=== PATIENT | female | born 1955 | race Caucasian/White ===

== ENCOUNTER 2022-10-25 16:54 | Inpatient (IN) | payer MEDICARE, SELFPAY ==
[2022-10-25] VITALS (7 sets, daily range): BP systolic 120–130; BP diastolic 74–89; PULSE 92–110; RESP 18–20; TEMP 36.6–36.7; O2SAT 92–96; BMI 23.6; BMI 25.9
--- NOTE | 2022-10-25 17:11 | ED_ITS ---
HPI - SOB/Dyspnea General Chief Complaint: Shortness of Breath/Dyspnea Stated Complaint: SHORTNESS OF BREATH AND SWELLING IN LEGS Time Seen by Provider: 10/25/22 17:11 Source: patient Mode of arrival: walk-in Limitations: no limitations History of Present Illness HPI Narrative: this patient's here complaining of swelling of her legs and retaining water. She said previously she was at urgent care and took a steroid and an antibiotic for sinus infection. That was several weeks ago. She's not been running a fever. She does not have a family doctor and has not seen a primary care doctor for nearly 10 years. She is down to one half pack tobacco products a day but she used to smoke a lot more than that for many many many years. She denies any documented history of chronic obstructive pulmonary disease or emphysema or asthma but again she does not see physicians. She uses a generous amount of salt with her food. She is not on any medications at all at this time. She also says when the [employer] came through, there is a lot of fast food, presumably with high sodium content. She's not having any chest pain. She's not had coronary disease myocardial infarction congestive heart failure or arrhythmia previously. Again very limited history because she just doesn't go see physicians. Related Data Home Medications Medication Instructions Recorded Confirmed No Known Home Medications 10/25/22 10/25/22 Allergies Allergy/AdvReac Type Severity Reaction Status Date / Time No Known Drug Allergies Allergy Verified 10/25/22 17:03 Exam Narrative Exam Narrative: GENERAL: Well hydrated, appears well, No obvious distress, Awake, Alert, Oriented x 3, Cognition intact HEENT: Normocephalic, No evidence of trauma, injury or infection, airway intact. Conjuntiva normal, no pallor or scleral icterus NECK: Supple, no meningeal irritation, full ROM, non-tender, No JVD CHEST: Symmetrical, no injury, non-tender, RESP: lungs show scattered rhonchi throughout. Her wheezing. CARDIO: Normal rate and rhythm, No murmur, Rub, or ectopy during auscultation. ABD: Non-tender, normal BS, no guarding, rebound or rigidity. No pulsatile, masses. No organomegaly NEURO: Neuro at baseline, No motor deficits, CN 2-12 Normal, Mentation inctact. EXTREMITIES: 3+ edema to the knees and distally. There is no active cellulitis. Perfusion is good with no evidence of tissue ischemia. SKIN: No petechiae, purpura, or abnormal bruising, warm, dry, no rash, skin is somewhat weathered consistent with her heavy tobacco use over the years. Constitutional Vital Signs, click to edit/add: Last Vital Signs Temp 97.9 F 10/25/22 17:00 Pulse 110 H 10/25/22 17:00 Resp 20 10/25/22 17:00 BP 120/84 H 10/25/22 18:04 Pulse Ox 96 10/25/22 17:00 O2 Del Method Room Air 10/25/22 17:00 Course Vital Signs Vital signs: Vital Signs Temperature 97.9 F 10/25/22 17:00 Pulse Rate 110 H 10/25/22 17:00 Respiratory Rate 20 10/25/22 17:00 Blood Pressure 130/89 H 10/25/22 17:00 Pulse Oximetry 96 10/25/22 17:00 Oxygen Delivery Method Room Air 10/25/22 17:00 Temperature 97.9 F 10/25/22 17:00 Pulse Rate 110 H 10/25/22 17:00 Respiratory Rate 20 10/25/22 17:00 Blood Pressure 120/84 H 10/25/22 18:04 Pulse Oximetry 96 10/25/22 17:00 Oxygen Delivery Method Room Air 10/25/22 17:00 MDM - SOB/Dyspnea MDM Narrative Medical decision making narrative: this patient has gone without health care for at least ten years. Heavy history of smoking now with subacute dyspnea with exertion and marked bilateral pitting edema. Chest x-ray shows small pleural effusions and vascular pulmonary congestion with marked elevation of BNP. Troponin is negative. No comparison EKGs the patient does have left bundle branch block. She has no pain or discomfort at all. She will receive IV diuretics and will need to be admitted. We'll discuss with the hospitalist. Lab Data Labs: Lab Results 10/25/22 Range/Units 17:17 WBC 8.4 (4.0-11.0) 10^3/uL RBC 5.06 (4.20-5.40) 10^6/uL Hgb 14.5 (12.0-16.0) g/dL Hct 42.9 (36.0-48.0) % MCV 84.8 (81.0-99.0) fL MCH 28.7 (26.7-34.0) pg MCHC 33.8 (29.9-35.2) g/dL RDW 15.0 (11.0-15.0) % Plt Count 252 (150-450) 10^3/uL MPV 10.3 (9.5-13.5) fL Neut % (Auto) 82.8 H (43.0-75.0) % Lymph % (Auto) 10.5 L (20.5-60.0) % Stafford % (Auto) 5.5 (1.7-12.0) % Eos % (Auto) 0.8 L (0.9-7.0) % Baso % (Auto) 0.2 (0.2-2.0) % Neut # (Auto) 7.0 H (1.4-6.5) 10^3/uL Lymph # (Auto) 0.9 L (1.2-3.8) 10^3/uL Stafford # (Auto) 0.5 (0.3-0.8) 10^3/uL Eos # (Auto) 0.1 (0.0-0.7) 10^3/uL Baso # (Auto) 0.0 (0.0-0.1) 10^3/uL Abs Immat Gran (auto) 0.02 (0.00-0.03) 10^3/uL Imm/Tot Granulo (auto) 0.2 (0.0-0.5) % Sodium 144 (136-145) mmol/L Potassium 3.9 (3.5-5.1) mmol/L Chloride 107 (98-107) mmol/L Carbon Dioxide 28.1 (21.0-32.0) mmol/L Anion Gap 12.8 BUN 15.0 (7.0-18.0) mg/dL Creatinine 0.88 (0.55-1.02) mg/dL Est GFR ( Amer) >60 (>=60) Est GFR (Non-Af Amer) >60 (>=60) BUN/Creatinine Ratio 17.0 Glucose 114 H (74-106) mg/dL Calcium 9.0 (8.5-10.1) mg/dL Total Bilirubin 0.5 (0.2-1.0) mg/dL AST 26 (15-37) U/L ALT 63 H (14-59) U/L Alkaline Phosphatase 160 H (46-116) U/L Troponin I High Sens 32.3 (4.0-51.3) pg/mL NT-Pro-B Natriuret Pep 52088.0 H* (<=900.0) pg/mL Total Protein 6.0 L (6.4-8.2) g/dL Albumin 3.4 (3.4-5.0) g/dL Globulin 2.6 g/dL Albumin/Globulin Ratio 1.3 Discharge Plan Discharge Chief Complaint: Shortness of Breath/Dyspnea Clinical Impression: Congestive heart failure Patient Disposition: Admitted As Inpatient Time of Disposition Decision: 18:01 Condition: Fair Interventions: ED Discharge Assessment Last Done: 10/25/22 18:59
--- NOTE | 2022-10-25 17:14 | XR_ITS ---
[address] [address] Patient Name: ERIC HARDWICK MRN: [id number] date: 1955 Sex: F Assigned Patient Location: ER Current Patient Location: ER Accession/Order Number: [id number] Exam Date: 10/25/2022 17:24 Report Date: 10/25/2022 17:43 At the request of: PEPE GARNER Procedure: XR chest 1V EXAM: XR chest 1V HISTORY: Shortness of breath and leg edema COMPARISON: None. TECHNIQUE: Portable chest FINDINGS: IMPRESSION: Moderate bilateral pleural effusions. The heart appears enlarged. Thickening of the pulmonary interstitium. No pneumothorax. No acute osseous abnormality. Electronically authenticated by: NORA JOYCE Date: 10/25/2022 17:43
--- NOTE | 2022-10-25 17:14 | ECG_ITS ---
[facility] Test Date: 2022-10-25 Pat Name: ERIC HARDWICK Department: Room: - Gender: Female Kier Hand: : 1955 Requested By: Order Number: [id number] Reading MD: THIEN KAN Measurements Intervals [place] Rate: 97 P: 47 VA: 132 QRS: -39 QRSD: 134 T: 129 QT: 422 QTc: 476 Interpretive Statements 1100 Sinus rhythm 2550 Left bundle branch block 6220 Possible left atrial enlargement 7200 Abnormal left axis deviation 9150 abnormal ECG No previous ECG available for comparison Electronically Signed On 10-26-2022 5:47:46 EDT by THIEN KAN
[2022-10-25 17:23] LABS: Basophils Percent Auto 0.2 % (0.2-2.0); Eosinophils Absolute Auto 0.1 10^3/uL (0.0-0.7); Eosinophils Percent Auto 0.8 % (0.9-7.0); Hematocrit 42.9 % (36.0-48.0); Hemoglobin 14.5 g/dL (12.0-16.0); Immature Granulocytes Abs Auto 0.02 10^3/uL (0.00-0.03); Immature Granulocytes Pct Auto 0.2 % (0.0-0.5); Lymphocytes Absolute Auto 0.9 10^3/uL (1.2-3.8); Lymphocytes Percent Auto 10.5 % (20.5-60.0); Mean Corpuscular HGB Conc 33.8 g/dL (29.9-35.2); Mean Corpuscular Hemoglobin 28.7 pg (26.7-34.0); Mean Corpuscular Volume 84.8 fL (81.0-99.0); Mean Platelet Volume 10.3 fL (9.5-13.5); Monocytes Absolute Auto 0.5 10^3/uL (0.3-0.8); Monocytes Percent Auto 5.5 % (1.7-12.0); Neutrophils Percent Auto 82.8 % (43.0-75.0); Platelet Count 252 10^3/uL (150-450); Red Blood Count 5.06 10^6/uL (4.20-5.40); White Blood Count 8.4 10^3/uL (4.0-11.0)
[2022-10-25 17:44] LABS: Alanine Aminotransferase 63 U/L (14-59); Albumin Globulin Ratio 1.3; Albumin Level 3.4 g/dL (3.4-5.0); Alkaline Phosphatase 160 U/L (46-116); Anion Gap 12.8; Aspartate Amino Transferase 26 U/L (15-37); Bilirubin Total 0.5 mg/dL (0.2-1.0); Carbon Dioxide 28.1 mmol/L (21.0-32.0); Chloride 107 mmol/L (98-107); Estimated GFR (African America >60 (>=60); Estimated GFR (Non-African Ame >60 (>=60); Globulin 2.6 g/dL; Glucose 114 mg/dL (74-106); Potassium 3.9 mmol/L (3.5-5.1); Sodium 144 mmol/L (136-145); Troponin I High Sensitivity 32.3 pg/mL (4.0-51.3)
[2022-10-25] MEDS: BUMETANIDE 1 MG/4 ML VIAL IVP (18:04)
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
[2022-10-26] VITALS (17 sets, daily range): BP systolic 95–108; BP diastolic 64–70; PULSE 78–105; RESP 16–18; TEMP 36.6–36.8; O2SAT 90–95; BMI 24.1
[2022-10-26 05:19] LABS: Basophils Percent Auto 0.3 % (0.2-2.0); Eosinophils Absolute Auto 0.1 10^3/uL (0.0-0.7); Eosinophils Percent Auto 1.8 % (0.9-7.0); Hematocrit 39.5 % (36.0-48.0); Hemoglobin 13.4 g/dL (12.0-16.0); Immature Granulocytes Abs Auto 0.02 10^3/uL (0.00-0.03); Immature Granulocytes Pct Auto 0.3 % (0.0-0.5); Lymphocytes Percent Auto 16.6 % (20.5-60.0); Mean Corpuscular HGB Conc 33.9 g/dL (29.9-35.2); Mean Corpuscular Volume 85.5 fL (81.0-99.0); Mean Platelet Volume 10.7 fL (9.5-13.5); Monocytes Absolute Auto 0.5 10^3/uL (0.3-0.8); Monocytes Percent Auto 7.5 % (1.7-12.0); Neutrophils Absolute Auto 4.4 10^3/uL (1.4-6.5); Neutrophils Percent Auto 73.5 % (43.0-75.0); Platelet Count 213 10^3/uL (150-450); Red Blood Count 4.62 10^6/uL (4.20-5.40); Red Cell Distribution Width 15.3 % (11.0-15.0)
[2022-10-26 05:46] LABS: Chol HDL Ratio 3.3; Cholesterol 166 mg/dL (<=200); HDL Cholesterol 51 mg/dL (40-60); LDL Cholesterol Calculated 90.2 mg/dL; Triglycerides 124 mg/dL (<=150); VLDL CHOLESTEROL 24.8 mg/dL
[2022-10-26 05:48] LABS: Anion Gap 14.2; BUN Creatinine Ratio 17.6; Calcium 8.5 mg/dL (8.5-10.1); Carbon Dioxide 26.4 mmol/L (21.0-32.0); Chloride 109 mmol/L (98-107); Estimated GFR (African America >60 (>=60); Estimated GFR (Non-African Ame >60 (>=60); Glucose 105 mg/dL (74-106); Magnesium 2.2 mg/dL (1.8-2.4); Potassium 3.6 mmol/L (3.5-5.1); Sodium 146 mmol/L (136-145)
--- NOTE | 2022-10-26 07:00 | CA_ITS ---
Patient Name Site Name ERIC HARDWICK [facility] Account No Medical Record Number Age Sex Date Time [id number] [facility]:[id number] F 10/26/2022 11:33 At the Request Of MALISSA AUSTIN ECHOCARDIOGRAM REPORT PROCEDURE: CA ECHO DOPPLER COMPLETE INDICATIONS: CHF, elevated BNP, edema, COPD, smoker COMPARISON: None. DESCRIPTION: COMPLETE ECHOCARDIOGRAM Real-time transthoracic echocardiography with 2D, M-mode, spectral and color flow Doppler performed. QUALITY: Technical quality was good. LEFT VENTRICLE: Moderate dilatation. Thickened septal wall. Severely reduced systolic function. LV EF: Visual estimation of left ventricular ejection fraction is 15-20%. DIASTOLIC: Grade II diastolic dysfunction. ATRIAL SEPTUM: Visually appears intact. LEFT ATRIUM: Moderate dilatation. RIGHT ATRIUM: Moderate dilatation. RIGHT VENTRICLE: Mild dilatation. Mildly decreased right ventricular systolic function. TRICUSPID VALVE: Normal mobility and thickness. No stenosis with trivial regurgitation. Doppler studies reveal mildly (35-45) elevated right sided pressures. RVSP 39 mmHg MITRAL VALVE: Normal mobility and thickness. No evidence of mitral valve stenosis. There is no mitral annular calcification. Moderate mitral regurgitation. AORTIC VALVE: Normal trileaflet appearance. No visible sclerosis. Normal leaflet mobility. No evidence of aortic valve stenosis. No aortic regurgitation. AORTIC ROOT: Normal diameter and appearance. PULMONIC VALVE: Normal thickness and mobility. No stenosis. No regurgitation. PERICARDIUM: No evidence of pericardial effusion. IVC: IVC is mildly dilated (2.4 cm) with no collapse. PLEURA: CONCLUSION: 1. Moderate dilatation of the left ventricle with severely reduced systolic function. LVEF is 15 to 20%. 2. Mildly dilated right ventricle with mildly reduced systolic function. 3. Moderate biatrial dilatation. 4. Grade 3 diastolic dysfunction. 5. Moderate mitral regurgitation. 6. Mildly elevated right-sided pressures. Adult Echocardiography Procedure Report Left Ventricle LVEDD (3.7 - 5.6 cm): 6.21 cm LVESD (2.2 - 4.0 cm): 5.22 cm LVIVS thickness (0.6 - 1.2 cm): 1.23 cm LVPW thickness (0.5 - 1.0 cm): 8.80 mm LVOT Max Gradient: 2 mm[Hg] Peak Velocity (LVOT): 64.20 cm/s LVOT Diameter 2.20 cm Left Ventricular Ejection Fraction: 15-20 % Left Atrium LA Volume Index (2D A2C): 10405 mm3 Left Atrium Systolic Dimension: 4.20 cm Mitral Valve MV E to A Ratio: 1.80 Mitral Valve A-Wave Peak Velocity: 68.60 cm/s Mitral Valve E-Wave Peak Velocity: 121.00 cm/s Right Ventricle Aorta AO Root Diam: 3.20 cm Aortic Valve AoV Area (Peak Vicente): 3.05 cm2 Peak Velocity(Antegrade Flow): 80.10 cm/s Peak Gradient(Antegrade Flow): 3 mm[Hg] Tricuspid Valve Peak Velocity (Regurgitant Flow): 247.00 cm/s Peak Velocity: 43.90 cm/s Pulmonic Valve Peak Velocity: 69.80 cm/s, 65.90 cm/s Peak Gradient: 2 mm[Hg] Right Atrium Dictated by: Siddhartha Ramsey M.D. on 10/26/2022 at 19:43 Approved by: Siddhartha Ramsey M.D. on 10/26/2022 at 19:47
[2022-10-26 07:30] LABS: Lactate/Lactic Acid 0.8 mmol/L (0.4-2.0)
[2022-10-26 07:37] LABS: Free T3 2.34 pg/mL (2.18-3.98); Magnesium 2.2 mg/dL (1.8-2.4); Thyroid Stimulating Hormone 3.595 uIU/mL (0.358-3.740); Troponin I High Sensitivity 26.5 pg/mL (4.0-51.3)
--- NOTE | 2022-10-26 09:07 | CM.NOTE ---
Rounds made with Dr. Ballard, pt continues to c/o dyspnea on exertion and lower extremity swelling. Dr. Ballard discussed plan of care and IV Bumex drip for today. No discharge today.
--- NOTE | 2022-10-26 09:48 | P.HP_ITS ---
H&P: HPI History of Present Illness Chief complaint: SOB AND SWELLING IN LEGS CONGESTIVE HEART FAILRE Narrative: Patient presented to the emergency room with increasing shortness of breath. Found to have acute combined congestive heart failure. This is a new diagnosis for her she has no history of heart failure in the past. Denies any cardiac issues in the past. Patient is admitted for work-up and treatment of same Review of Systems ROS Constitutional Denies: fever or chills Eyes Denies: change in vision Ears, nose, mouth, and throat Denies: throat pain Cardiovascular Reports: chest pain, edema, swelling of feet/ankles, shortness of breath with exertion and shortness of breath when lying down Respiratory Reports: shortness of breath Gastrointestinal Denies: abdominal pain or nausea Genitourinary Denies: painful urination Musculoskeletal Denies: back pain [facility] Medical History (Updated 10/25/22 @ 19:37 by Karyna Pritchard) Surgical History Family History Father Family history of cancer Mother Family history of cancer Family history of hypertension Family history of myocardial infarction Brother Family history of cancer Sister Family history of cancer Grandmother Family history of stroke Social History Within the past year, how often did you have a drink containing alcohol: never Within the past year, how many standard drinks containing alcohol did you have on a typical day: 1 or 2 Within the past year, how often did you have six or more drinks on one occasion: less than monthly Total score: 1 Score interpretation: A score less than 3 is consistent with normal alcohol consumption. Smoking status: Current every day smoker What tobacco products do you use: cigarettes Pack-years instructions: Please document either packs per day or cigarettes per day in order for pack years to calculate correctly. If using both packs per day and cigarettes per day, please make sure that they denote the same thing. If they differ, pack- years will calculate based on packs per day. Packs Per Day Cigarettes Per Day 1/4 of a pack 5 1/2 a pack 10 3/4 of a pack 15 1 pack 20 1.5 pack 30 2 packs 40 2.5 packs 50 3 packs 60 Packs per day: 1 Cigarettes per day: 10 Years smoked: 50 Smoking pack-years: 50.00 Non-prescribed substance use: denies use Previous occupational history: retired Known occupational exposures/hazards: No Highest level of school completed/degree received: some college, no degree Do you want help with school or training: No Are you now , , , , never or living with a partner: In a typical week, how many times do you talk on the telephone with family, friends, or neighbors: 3 or more times per week How often do you get together with friends or relatives: once per week How often do you attend jehovah's witness or hindu services: never Do you belong to any clubs or organizations such as jehovah's witness groups unions, [employer] or athletic groups, or school groups: no Total score: 2 Score interpretation: A score of greater than or equal to 2 indicates the lowest level of social isolation. Little interest or pleasure in doing things: not at all Feeling down, depressed, or hopeless: not at all Feel stressed/tense/nervous/anxious/difficulty sleeping: only a little Life stressors: unknown source of stress Due to disability, difficulty making decisions: No Do you think of yourself as: straight/heterosexual Gender Identity: female Meds Home Medications and Allergies Home Medications Medication Instructions Recorded Confirmed Type No Known Home Medications 10/25/22 10/25/22 History Allergies Allergy/AdvReac Type Severity Reaction Status Date / Time No Known Drug Allergies Allergy Verified 10/25/22 17:03 Exam Constitutional Vital Signs, click to edit/add: Last Vital Signs Temp 97.9 F 10/26/22 05:38 Pulse 92 H 10/26/22 08:06 Resp 18 10/26/22 05:38 BP 108/70 10/26/22 05:38 Pulse Ox 90 L 10/26/22 05:38 O2 Del Method Room Air 10/26/22 05:38 Documenting provider has reviewed patient's vital signs: yes Common normals: apparent distress General appearance: cooperative; not comfortable Chest Common normals: inspection of chest normal Respiratory Common normals: abnormal respiratory effort and not clear to ascultation bilaterally Effort & inspection: abnormal respiratory pattern and tachypneic Auscultation: rales Cardio Common normals: regular rate, regular rhythm and no murmurs Results Labs Labs: Short CBC 10/25/22 10/26/22 Range/Units 17:17 04:45 WBC 8.4 6.0 (4.0-11.0) 10^3/uL Hgb 14.5 13.4 (12.0-16.0) g/dL Hct 42.9 39.5 (36.0-48.0) % Plt Count 252 213 (150-450) 10^3/uL BMP 10/25/22 10/26/22 17:17 04:45 Sodium 144 146 H Potassium 3.9 3.6 Chloride 107 109 H Carbon Dioxide 28.1 26.4 BUN 15.0 15.0 Creatinine 0.88 0.85 Glucose 114 H 105 Calcium 9.0 8.5 Liver Function 10/25/22 Range/Units 17:17 Total Bilirubin 0.5 (0.2-1.0) mg/dL AST 26 (15-37) U/L ALT 63 H (14-59) U/L Alkaline Phosphatase 160 H (46-116) U/L Albumin 3.4 (3.4-5.0) g/dL Assessment and Plan Assessment and Plan (1) Congestive heart failure: Plan Sinus tachycardia, respiratory distress, elevated BNP, peripheral edema secondary to acute combined congestive heart failure-this is a new diagnosis for her. Needs complete work-up. We will obtain echocardiogram this morning, discussed with cardiology pending those results, initial diuresis overnight not significantly effective with only 1 L down. We will try patient on a Bumex drip. Check thyroid labs. Patient has been fairly healthy up until this last few days. Has not seen a doctor in 15 years. Hypernatremia-Monitor daily With severity of CHF and not responding initially to Lasix. , will require Bumex drip and with the new onset needs extensive work-uSecondary to her extreme dyspnea with any activity. Unable to improve things overnight. She needs to be inpatient status. Unless needing transferred this is likely be a 2 to 3-day hospital stay
--- NOTE | 2022-10-26 10:26 | CM.NOTE ---
Important Message From Medicare discussed with pt, pt verbalizes understanding and signs paper. Original given to pt and copy placed on pt's chart.
[2022-10-26] MEDS: CEFTRIAXONE 1,000 MG in 0.9 % SODIUM CHLORIDE 50 ML 100 MG IV (11:17)
[2022-10-26] MEDS: BUMETANIDE 10 MG in 0.9 % SODIUM CHLORIDE 160 ML 20 MG IV (11:51)
--- NOTE | 2022-10-26 12:05 | SWNOTE1 ---
SW met with pt to discuss dc needs. Pt's son in room as well. Pt lives at home with her oldest son. It is a 2 story home, but she stays on the first floor, has a few steps to get into the home. Pt does not use any DME at home and does still drive. Pt is not current with any home health [facility]. Pt does need a primary care physician. SW gave pt the list of accepting PCP's. Pt was familiar with one of them and was going to review the list and she will let nursing know who she wants. SW to follow as needed.
[2022-10-26 13:54] LABS: Troponin I High Sensitivity 24.7 pg/mL (4.0-51.3)
[2022-10-27] VITALS (10 sets, daily range): BP systolic 97–99; BP diastolic 63–65; PULSE 65–95; RESP 16; TEMP 36.7; O2SAT 92–95
[2022-10-27 04:42] LABS: Basophils Percent Auto 0.4 % (0.2-2.0); Eosinophils Absolute Auto 0.1 10^3/uL (0.0-0.7); Eosinophils Percent Auto 2.3 % (0.9-7.0); Hemoglobin 13.4 g/dL (12.0-16.0); Immature Granulocytes Abs Auto 0.02 10^3/uL (0.00-0.03); Immature Granulocytes Pct Auto 0.4 % (0.0-0.5); Lymphocytes Absolute Auto 1.1 10^3/uL (1.2-3.8); Lymphocytes Percent Auto 21.5 % (20.5-60.0); Mean Corpuscular HGB Conc 33.5 g/dL (29.9-35.2); Mean Corpuscular Hemoglobin 28.6 pg (26.7-34.0); Mean Corpuscular Volume 85.3 fL (81.0-99.0); Mean Platelet Volume 10.3 fL (9.5-13.5); Monocytes Absolute Auto 0.4 10^3/uL (0.3-0.8); Monocytes Percent Auto 8.5 % (1.7-12.0); Neutrophils Absolute Auto 3.5 10^3/uL (1.4-6.5); Neutrophils Percent Auto 66.9 % (43.0-75.0); Platelet Count 202 10^3/uL (150-450); Red Blood Count 4.69 10^6/uL (4.20-5.40); White Blood Count 5.2 10^3/uL (4.0-11.0)
[2022-10-27 05:05] LABS: Alanine Aminotransferase 29 U/L (14-59); Albumin Level 2.7 g/dL (3.4-5.0); Alkaline Phosphatase 120 U/L (46-116); Anion Gap 8.2; Aspartate Amino Transferase 18 U/L (15-37); BUN Creatinine Ratio 17.3; Bilirubin Total 0.6 mg/dL (0.2-1.0); Calcium 8.3 mg/dL (8.5-10.1); Carbon Dioxide 33.9 mmol/L (21.0-32.0); Chloride 107 mmol/L (98-107); Estimated GFR (African America >60 (>=60); Estimated GFR (Non-African Ame 57 (>=60); Globulin 2.6 g/dL; Glucose 98 mg/dL (74-106); Potassium 3.1 mmol/L (3.5-5.1); Sodium 146 mmol/L (136-145); Total Protein 5.3 g/dL (6.4-8.2)
[2022-10-27 05:14] LABS: Troponin I High Sensitivity 31.9 pg/mL (4.0-51.3)
--- NOTE | 2022-10-27 08:52 | CM.NOTE ---
Rounds made with Dr. Ballard, discussed echo results with pt and need to continue diuretics. Consult cardiology also to see pt today.
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
[2022-10-27] MEDS: POTASSIUM CHLORIDE 10 MEQ ER TABLET 20 MEQ PO (10:27)
[2022-10-27] MEDS: FUROSEMIDE 40 MG TABLET PO (10:30)
[2022-10-27] MEDS: SPIRONOLACTONE 25 MG TABLET PO (10:30)
--- NOTE | 2022-10-27 11:47 | PT.DAILY ---
Physical Therapy Daily Note PT Daily Note/Assess Start: 10/27/22 11:44 Freq: Status: Active Protocol: Document 10/27/22 11:44 JOSE (Rec: 10/27/22 11:47 JOSE Laptop) Visit Not Completed Visit Not Completed Visit Not Completed Due to: Other Other Reason Visit Not Completed Pt up ad basil in room. Being transferred to [facility] this afternoon. Physical Therapy Daily Note/Assessment Time In/Time Out Time In 10:00 Time Out 10:01 GG. Functional Abilities and Goals-Complete for Swing Bed Patients Only [id number]. Self-Care [id number]. Mobility
--- NOTE | 2022-10-27 13:05 | P.CACN_ITS ---
History of Present Illness History of Present Illness Consult date: 10/27/22 Requesting physician: Daryl Ballard Consult reason: congestive heart failure Chief complaint: SOB AND SWELLING IN LEGS CONGESTIVE HEART FAILRE Narrative: 67-year-old female with no significant past medical history but it is noted in documentation that she has history of COPD, patient was unaware when I brought this up. She has been smoking a pack per day for the last 30 years. She has noted not seeing a doctor for 15 years. She came to [facility] for shortness of breath and lower extremity swelling. She states everything started back around where she thought she had a sinus infection and was treated with Augmentin and steroids. Her nasal congestion resolved but her shortness of breath and chest congestion did not and she began to experience leg swelling. She was found to have elevated BNP, and echocardiogram showed EF 15%. ECG shows sinus rhythm with left bundle branch block, she is asymptomatic but I have no prior ECG to compare. She has been diuresed on Lasix but was noted to not respond was transitioned to Bumex IV and diuresed well. She is now on Lasix p.o. Review of Systems ROS Cardiovascular Reports: edema, swelling of feet/ankles, shortness of breath with exertion and shortness of breath when lying down Respiratory Reports: shortness of breath, cough and chest congestion [facility] Medical History (Updated 10/27/22 @ 17:26 by ANTOINETTE MURRAY) Surgical History Family History Father Family history of cancer Mother Family history of cancer Family history of hypertension Family history of myocardial infarction Brother Family history of cancer Sister Family history of cancer Grandmother Family history of stroke Social History Within the past year, how often did you have a drink containing alcohol: never Within the past year, how many standard drinks containing alcohol did you have on a typical day: 1 or 2 Within the past year, how often did you have six or more drinks on one occasion: less than monthly Total score: 1 Score interpretation: A score less than 3 is consistent with normal alcohol consumption. Smoking status: Current every day smoker What tobacco products do you use: cigarettes Pack-years instructions: Please document either packs per day or cigarettes per day in order for pack years to calculate correctly. If using both packs per day and cigarettes per day, please make sure that they denote the same thing. If they differ, pack- years will calculate based on packs per day. Packs Per Day Cigarettes Per Day 1/4 of a pack 5 1/2 a pack 10 3/4 of a pack 15 1 pack 20 1.5 pack 30 2 packs 40 2.5 packs 50 3 packs 60 Packs per day: 1 Cigarettes per day: 10 Years smoked: 50 Smoking pack-years: 50.00 Non-prescribed substance use: denies use Previous occupational history: retired Known occupational exposures/hazards: No Highest level of school completed/degree received: some college, no degree Do you want help with school or training: No Are you now , , , , never or living with a partner: In a typical week, how many times do you talk on the telephone with family, friends, or neighbors: 3 or more times per week How often do you get together with friends or relatives: once per week How often do you attend tenriism or nondenominational services: never Do you belong to any clubs or organizations such as tenriism groups unions, fraternal or athletic groups, or school groups: no Total score: 2 Score interpretation: A score of greater than or equal to 2 indicates the lowest level of social isolation. Little interest or pleasure in doing things: not at all Feeling down, depressed, or hopeless: not at all Feel stressed/tense/nervous/anxious/difficulty sleeping: only a little Life stressors: unknown source of stress Due to disability, difficulty making decisions: No Do you think of yourself as: straight/heterosexual Gender Identity: female Meds Home Medications and Allergies Home Medications Medication Instructions Recorded Confirmed Type No Known Home Medications 10/25/22 10/25/22 History Allergies Allergy/AdvReac Type Severity Reaction Status Date / Time No Known Drug Allergies Allergy Verified 10/25/22 17:03 Exam Constitutional Vital Signs, click to edit/add: Last Vital Signs Temp 98.1 F 10/27/22 10:21 Pulse 95 H 10/27/22 11:56 Resp 16 10/27/22 10:21 BP 99/65 10/27/22 10:21 Pulse Ox 92 L 10/27/22 11:54 O2 Del Method Room Air 10/27/22 11:54 Common normals: oriented x3 and alert General appearance: cooperative Respiratory Effort & inspection: able to speak in complete sentences, actively coughing and uses accessory muscles Auscultation: rales Cardio Common normals: regular rate and regular rhythm Extremity General: edema (mild-mod) Results Labs and Meds Lab results: Cardiac Enzymes 10/27/22 Range/Units 04:18 AST 18 (15-37) U/L CBC 10/27/22 Range/Units 04:18 WBC 5.2 (4.0-11.0) 10^3/uL RBC 4.69 (4.20-5.40) 10^6/uL Hgb 13.4 (12.0-16.0) g/dL Hct 40.0 (36.0-48.0) % Plt Count 202 (150-450) 10^3/uL Neut # (Auto) 3.5 (1.4-6.5) 10^3/uL Lymph # (Auto) 1.1 L (1.2-3.8) 10^3/uL Pershing # (Auto) 0.4 (0.3-0.8) 10^3/uL Eos # (Auto) 0.1 (0.0-0.7) 10^3/uL Baso # (Auto) 0.0 (0.0-0.1) 10^3/uL Comprehensive Metabolic Panel 10/27/22 Range/Units 04:18 Sodium 146 H (136-145) mmol/L Potassium 3.1 L (3.5-5.1) mmol/L Chloride 107 (98-107) mmol/L Carbon Dioxide 33.9 H (21.0-32.0) mmol/L BUN 17.0 (7.0-18.0) mg/dL Creatinine 0.98 (0.55-1.02) mg/dL Glucose 98 (74-106) mg/dL Calcium 8.3 L (8.5-10.1) mg/dL AST 18 (15-37) U/L ALT 29 (14-59) U/L Alkaline Phosphatase 120 H (46-116) U/L Total Protein 5.3 L (6.4-8.2) g/dL Albumin 2.7 L (3.4-5.0) g/dL Intake and Output 10/26/22 10/27/22 10/27/22 23:59 07:59 15:59 Intake Total 750 / 1090 200 / 200 Output Total 1175 / 1575 Balance -425 / -485 200 / 200 Intake: Oral 350 / 590 200 / 200 Other 200 / 250 IV 200 / 250 Bumetanide 10 mg In 0.9 % 200 / 200 Sodium Chloride 160 ml @ 20 mls /hr IV ONCE [facility] Rx#:[id number] Output: Urine 1175 / 1375 Other: Weight 76.4 kg Assessment and Plan Assessment and Plan (1) Congestive heart failure: Assessment and Plan: NYHA II-III, EF 15% -new onset HFrEf -LBBB - asymptomatic -continue medications -recommend transfer to [facility] for HF management and ischemic evaluation considering new/acute HF (2) LBBB (left bundle branch block): Plan Sinus tachycardia, respiratory distress, elevated BNP, peripheral edema s econdary to acute combined congestive heart failure-this is a new diagnosis for her. Needs complete work-up. We will obtain echocardiogram this morning, discussed with cardiology pending those results, initial diuresis overnight not significantly effective with only 1 L down. We will try patient on a Bumex drip. Check thyroid labs. Patient has been fairly healthy up until this last few days. Has not seen a doctor in 15 years. Hypernatremia-Monitor daily With severity of CHF and not responding initially to Lasix. , will require Bumex drip and with the new onset needs extensive work-uSecondary to her extreme dyspnea with any activity. Unable to improve things overnight. She needs to be inpatient status. Unless needing transferred this is likely be a 2 to 3-day hospital stay
--- NOTE | 2022-10-27 17:30 | P.DS_ITS ---
DS: Providers Provider Date of admission: 10/25/22 19:00 Primary care physician: Non-Staff Physician, Consults: 10/26/22 06:44 Physical Therapy Eval and Treat Routine 10/26/22 09:51 Physical Therapy Eval and Treat Routine DS: Diagnosis Discharge Diagnosis (1) Congestive heart failure: Assessment and plan: Sinus tachycardia, respiratory distress, elevated BNP, peripheral edema secondary to acute combined congestive heart failure-this is a new diagnosis for her.? Patient has been fairly healthy up until this last few days.? Has not seen a doctor in 15 years. Hypernatremia-Monitor daily With severity of CHF and not responding initially to Lasix. , will require Bumex drip and with the new onset needs extensive work-uSecondary to her extreme dyspnea with any activity.? Unable to improve things overnight.? She needs to be inpatient status.? Unless needing transferred this is likely be a 2 to 3-day hospital stay DS: Summary Hospital Course Hospital Course: Patient was admitted with increasing shortness of breath. Found to have acute combined congestive heart failure. She had not seen a doctor in over 11 years. She had no knowledge of any previous cardiac illness. Work-up completed, thyroid was normal, blood count was normal however ejection fraction showed a 50 to 20% ejection fraction. She diuresed somewhat with about a liter and a half of the Bumex drip. With the Bumex drip failure to improve her overall status, new onset of acute combined congestive heart failure with significant the reduced ejection fraction patient will be transferred to [facility] for continued cardiac care in the heart cath. Should be transferred straight to the [facility]. Medications see list. Follow-up with any PCP within the next week after discharge. Time Spent with Patient Time attestation: Total time spent providing and/or coordinating discharge services: Exam Constitutional Vital Signs, click to edit/add: Last Vital Signs Temp 98.1 F 10/27/22 10:21 Pulse 95 H 10/27/22 11:56 Resp 16 10/27/22 10:21 BP 99/65 10/27/22 10:21 Pulse Ox 92 L 10/27/22 11:54 O2 Del Method Room Air 10/27/22 11:54 Common normals: oriented x3 and alert General appearance: cooperative Respiratory Effort & inspection: able to speak in complete sentences, actively coughing and uses accessory muscles Auscultation: rales Cardio Common normals: regular rate and regular rhythm Extremity General: edema (mild-mod) DS: Data Data Completed and Pending Labs on day of discharge: Labs from last 24 hours 10/27/22 04:18 WBC 5.2 RBC 4.69 Hgb 13.4 Hct 40.0 MCV 85.3 MCH 28.6 MCHC 33.5 RDW 15.0 Plt Count 202 MPV 10.3 Neut % (Auto) 66.9 Lymph % (Auto) 21.5 Jones % (Auto) 8.5 Eos % (Auto) 2.3 Baso % (Auto) 0.4 Neut # (Auto) 3.5 Lymph # (Auto) 1.1 L Jones # (Auto) 0.4 Eos # (Auto) 0.1 Baso # (Auto) 0.0 Abs Immat Gran (auto) 0.02 Imm/Tot Granulo (auto) 0.4 Sodium 146 H Potassium 3.1 L Chloride 107 Carbon Dioxide 33.9 H Anion Gap 8.2 BUN 17.0 Creatinine 0.98 Est GFR ( Amer) >60 Est GFR (Non-Af Amer) 57 L BUN/Creatinine Ratio 17.3 Glucose 98 Calcium 8.3 L Magnesium 2.0 Total Bilirubin 0.6 AST 18 ALT 29 Alkaline Phosphatase 120 H Troponin I High Sens 31.9 NT-Pro-B Natriuret Pep 8651.0 H* Total Protein 5.3 L Albumin 2.7 L Globulin 2.6 Albumin/Globulin Ratio 1.0 Discharge Plan Discharge Disposition: [facility] Condition: Fair Discharge Date/Time: 10/27/22 12:41
== END 2022-10-27 12:41 | disposition short-term general hospital (02) | DRG 292 ==
LOC: ER 18:02 → MS 19:04
PROVIDERS: Admitting Provider Internal Medicine; Emergency Provider Emergency Medicine Emergency Medical Services; Visit Provider Family Medicine
DX: I50.41 Acute combined systolic (congestive) and diastolic (congestive) heart failure (principal); E87.0 Hyperosmolality and hypernatremia; I44.7 Left bundle-branch block, unspecified; J44.9 Chronic obstructive pulmonary disease, unspecified; F17.210 Nicotine dependence, cigarettes, uncomplicated; Z82.49 Family history of ischemic heart disease and other diseases of the circulatory system; Z80.9 Family history of malignant neoplasm, unspecified; Z82.3 Family history of stroke
CPT/HCPCS: 36415; 71045; 80048; 80053; 80061; 81001; 83605; 83735; 83880; 84436; 84443; 84481; 84484; 85025; 87086; 93005; 93306; 94667; 94668; 94761; 96365; 96366; 96367; 96376; 97161; 99285; Q3014

== ENCOUNTER 2022-11-06 11:57 | Outpatient (OUT) | payer MEDICARE, SELFPAY ==
[2022-11-06 12:29] LABS: Basophils Percent Auto 0.5 % (0.2-2.0); Eosinophils Absolute Auto 0.1 10^3/uL (0.0-0.7); Hematocrit 43.8 % (36.0-48.0); Hemoglobin 14.6 g/dL (12.0-16.0); Immature Granulocytes Abs Auto 0.02 10^3/uL (0.00-0.03); Immature Granulocytes Pct Auto 0.3 % (0.0-0.5); Lymphocytes Absolute Auto 0.9 10^3/uL (1.2-3.8); Lymphocytes Percent Auto 14.8 % (20.5-60.0); Mean Corpuscular HGB Conc 33.3 g/dL (29.9-35.2); Mean Corpuscular Hemoglobin 28.3 pg (26.7-34.0); Mean Corpuscular Volume 84.9 fL (81.0-99.0); Mean Platelet Volume 10.2 fL (9.5-13.5); Monocytes Absolute Auto 0.5 10^3/uL (0.3-0.8); Monocytes Percent Auto 7.7 % (1.7-12.0); Neutrophils Absolute Auto 4.6 10^3/uL (1.4-6.5); Neutrophils Percent Auto 75.7 % (43.0-75.0); Platelet Count 248 10^3/uL (150-450); Red Blood Count 5.16 10^6/uL (4.20-5.40); Red Cell Distribution Width 14.5 % (11.0-15.0); White Blood Count 6.1 10^3/uL (4.0-11.0)
[2022-11-06 13:46] LABS: Alanine Aminotransferase 28 U/L (14-59); Albumin Globulin Ratio 1.1; Albumin Level 3.3 g/dL (3.4-5.0); Alkaline Phosphatase 141 U/L (46-116); Anion Gap 8.7; Aspartate Amino Transferase 17 U/L (15-37); BUN Creatinine Ratio 17.9; Bilirubin Total 0.7 mg/dL (0.2-1.0); Calcium 8.8 mg/dL (8.5-10.1); Carbon Dioxide 31.3 mmol/L (21.0-32.0); Chloride 107 mmol/L (98-107); Estimated GFR (African America >60 (>=60); Estimated GFR (Non-African Ame >60 (>=60); Globulin 2.9 g/dL; Glucose 89 mg/dL (74-106); Sodium 144 mmol/L (136-145); Total Protein 6.2 g/dL (6.4-8.2)
== END 2022-11-06 11:58 | disposition home or self-care (01) ==
LOC: LAB 12:00
PROVIDERS: Visit Provider Nurse Practitioner Acute Care
DX: I50.20 Unspecified systolic (congestive) heart failure (principal)
CPT/HCPCS: 36415; 80053; 83880; 85025